=== PATIENT | male | born 2000 | race African-American/Black ===

== ENCOUNTER 2023-07-17 07:31 | Emergency (ER) | payer OTHER ==
[~2023-07-17] VITALS: Ht 167.6 cm; Wt 91.0 kg
[2023-07-17 07:46] VITALS: PULSE 89
[2023-07-17 07:48] VITALS: BP 142/59; RESP 16; TEMP 98.6; O2SAT 100
[2023-07-17] MEDS ORDERED: NAPROXEN 250MG TABLET PO ONE (09:15)
[2023-07-17] MEDS ORDERED: IBUP-2028 PO (10:13)
== END 2023-07-17 10:38 | disposition home or self-care (01) ==
LOC: EDSEX 07:31 → ER 07:31
DX: M54.50 Low back pain, unspecified (principal); J45.909 Unspecified asthma, uncomplicated
CPT/HCPCS: 99282

== ENCOUNTER 2023-07-25 21:08 | Emergency (ER) | payer OTHER ==
[~2023-07-25] VITALS: Ht 167.6 cm; Wt 170.0 kg
[~2023-07-25 21:08] MED LIST: IBUP-2028 PO
[2023-07-25 21:23] VITALS: O2SAT 97
[2023-07-25 22:01] LABS: BASOPHILS % 0.4 % (0.0-2.0); EOSINOPHILS % 2.6 % (0.0-5.0); HEMATOCRIT. 41.7 % (42.0-52.0); HEMOGLOBIN. 14.7 g/dL (14.0-18.0); LYMPHOCYTES % 41.6 % (20.0-50.0); MEAN CORPUSCULAR HEMOGLOBIN 30.6 pg (28.0-32.0); MEAN CORPUSCULAR HGB CONC 35.2 g/dL (31.0-37.0); MEAN PLATELET VOLUME 8.9 fl (7.4-10.4); NEUTROPHILS % 47.4 % (40.0-76.0); PLATELET 195 x1000/uL (130-400); RED BLOOD CELL COUNT 4.79 mill/uL (4.7-6.1); RED CELL DISTRIBUTION WIDTH 13.5 % (11.6-14.6); WHITE BLOOD COUNT 6.6 x1000/uL (4.5-11.0)
[2023-07-25 22:08] LABS: CHLORIDE 105 mEq/L (98-107); INDEX HEMOLYSI 2 (1-3); INDEX ICTERIC 1 (1-4); INDEX LIPEMIC 1 (1-3); POTASSIUM 3.8 mEq/L (3.5-5.1); SODIUM 135 mEq/L (136-145)
[2023-07-25 22:17] LABS: ALANINE AMINOTRANSFERASE 40 IU/L (13-61); ALBUMIN 3.8 g/dL (3.4-5.0); ASPARTATE AMINOTRANSFERASE 23 IU/L (15-37); BILIRUBIN TOTAL 0.5 mg/dL (0.1-1.0); CALCIUM 8.4 mg/dL (8.5-10.1); CARBON DIOXIDE 26 mEq/L (21-32); CREATININE 0.8 mg/dL (0.6-1.3); GLUCOSE 106 mg/dL (70-105); PROTEIN TOTAL 7.3 g/dL (6.0-8.3); UREA NITROGEN BLOOD 13 mg/dL (7-21)
[2023-07-25] MEDS ORDERED: IBUP-2030 MT (22:21)
[2023-07-25 22:41] VITALS: BP 125/77; PULSE 78; RESP 18; TEMP 97.4
== END 2023-07-25 22:51 | disposition home or self-care (01) ==
LOC: ER 21:08
DX: R51.9 Headache, unspecified (principal); R11.0 Nausea; J45.909 Unspecified asthma, uncomplicated
CPT/HCPCS: 36415; 80053; 85025; 99283

== ENCOUNTER 2023-08-22 08:33 | Emergency (ER) | payer OTHER ==
[~2023-08-22] VITALS: Ht 177.8 cm; Wt 90.0 kg
[~2023-08-22 08:33] MED LIST changes: +IBUP-2030 MT
[2023-08-22 08:37] VITALS: BP 145/77; PULSE 82; RESP 20; TEMP 98.4; O2SAT 97
== END 2023-08-22 11:05 | disposition home or self-care (01) ==
LOC: ER 08:33
DX: J40 Bronchitis, not specified as acute or chronic (principal); Z91.010 Allergy to peanuts; Z98.890 Other specified postprocedural states
CPT/HCPCS: 71046; 99283